=== PATIENT | male | born 1995 | race Hispanic/Latino ===

== ENCOUNTER 2023-07-28 00:20 | Emergency (ER) | payer OTHER ==
[~2023-07-28] VITALS: Ht 165.1 cm; Wt 113.4 kg
[2023-07-28] MEDS ORDERED: KETOROLAC TROMETHAMINE 60 MG/2 ML VIAL IM ONE (00:45)
[2023-07-28 01:53] VITALS: O2SAT 95
== END 2023-07-28 02:01 | disposition home or self-care (01) ==
LOC: ER 00:31
DX: Z04.1 Encounter for examination and observation following transport accident (principal); V43.52XA Car driver injured in collision with other type car in traffic accident, initial encounter; Y92.488 Other paved roadways as the place of occurrence of the external cause
CPT/HCPCS: 70450; 71250; 72125; 74176; 99283; J1885

== ENCOUNTER 2024-05-07 23:17 | Emergency (ER) | payer OTHER ==
[~2024-05-07] VITALS: Ht 165.1 cm; Wt 113.4 kg
[2024-05-07 23:49] VITALS: PULSE 91; RESP 18; TEMP 98
[2024-05-08 04:12] VITALS: BP 128/86; O2SAT 100
== END 2024-05-08 04:11 | disposition home or self-care (01) ==
LOC: ER 05-08 02:01
DX: R20.2 Paresthesia of skin (principal); M79.89 Other specified soft tissue disorders
CPT/HCPCS: 93971; 99283

== ENCOUNTER → 2024-07-21 | Day surgery (SDC) | payer OTHER ==
[~2024-07-21] MED LIST: FENTANYL CITRATE/PF 100MCG/2 ML INJ ONE; KETOROLAC TROMETHAMINE 30 MG/ML VIAL ONE; LIDOCAINE HCL 2% LOCAL INJ 5 ML SDV VIAL INJ ONE; MIDAZOLAM HCL 2 MG/2 ML VIAL ONE; ONDANSETRON HCL INJ 2MG/ML 2ML 2 MG/ML VIAL ONE; PROPOFOL IV EMULSION 10 MG/ML 20 ML VIAL ONE; SEVOFLURANE INHAL SOLN 250 ML PEN BTL ONE
[2024-07-21 08:30] VITALS: BP 132/90; PULSE 76; RESP 15; O2SAT 97
== END | disposition home or self-care (01) ==
LOC: OR 05:37
PROVIDERS: ATTEND Specialist
DX: G56.03 Carpal tunnel syndrome, bilateral upper limbs (principal); Z71.3 Dietary counseling and surveillance; Z88.0 Allergy status to penicillin; Z79.1 Long term (current) use of non-steroidal anti-inflammatories (NSAID); Z68.41 Body mass index [BMI] 40.0-44.9, adult
CPT/HCPCS: 29848; J0690; J1885; J2003; J2250; J2405; J2704; J3010